=== PATIENT | male | born 1985 | race American Indian/Alaskan Native ===

== ENCOUNTER 2018-12-16 20:11 | Emergency (ER) | payer SELFPAY ==
[2018-12-16] MEDS ORDERED: XYLOCAINE 1% MPF 5 mL INFILTRATI ONE (23:21)
[2018-12-16] MEDS ORDERED: CLEOCIN 900 MG/50 mL 900 MG/50 ML BAG IV ONE (23:21)
[2018-12-16] MEDS ORDERED: NORCO 5/325 PO ONE (23:21)
--- NOTE | 2018-12-17 00:30 | Emergency Department Report ---
Abscess Boil HPI - HPI Chief Complaint: Skin/Abscess/Foreign Body Stated Complaint: CYST/BOIL UNDER RIGHT ARM Time Seen by Provider: 12/16/18 23:20 Location: Upper Extremity Severity: Moderate History: Yes Pain, No Fever, No Purulent Drainage, No Numbness, No Foreign Body, No Previous History, No Insect Bite HPI: patient is a 33-year-old -[place] male who presents for a right axillary abscess to 3 cm 2 days patient is HIV positive states that her wrist antivirals there is no fevers no chills no nausea vomiting history of recurrent abscesses patient has ID requesting I&D tonight Home Medications: Previous Rx's Medication Instructions Recorded Last Taken Type Clindamycin [Clindamycin CAP] 300 mg PO Q6H 10 Days #40 capsule 12/17/18 Unknown Rx traMADol [Ultram] 50 mg PO Q6HR PRN #12 tablet 12/17/18 Unknown Rx Allergies/Adverse Reactions: Allergies Allergy/AdvReac Type Severity Reaction Status Date / Time No Known Allergies Allergy Unverified 12/16/18 20:21 ED Review of Systems ROS: Stated complaint: CYST/BOIL UNDER RIGHT ARM Other details as noted in HPI Constitutional: denies: chills, fever Eyes: denies: eye pain, eye discharge, vision change ENT: denies: ear pain, throat pain Respiratory: denies: cough, shortness of breath, wheezing Cardiovascular: denies: chest pain, palpitations Endocrine: no symptoms reported Gastrointestinal: denies: abdominal pain, nausea, diarrhea Genitourinary: denies: urgency, dysuria Musculoskeletal: denies: back pain, joint swelling, arthralgia Skin: as per HPI, other (abscess right axillary ) Neurological: denies: headache, weakness, paresthesias Psychiatric: denies: anxiety, depression Hematological/Lymphatic: denies: easy bleeding, easy bruising ED Past Medical Hx - Past Medical History Previous Medical History?: No - Surgical History Past Surgical History?: No - Social History Smoking Status: Current Every Day Smoker Substance Use Type: None - Medications Home Medications: Home Medications Medication Instructions Recorded Confirmed Last Taken Type Clindamycin [Clindamycin CAP] 300 mg PO Q6H 10 Days #40 capsule 12/17/18 Unknown Rx traMADol [Ultram] 50 mg PO Q6HR PRN #12 tablet 06/15/19 Unknown Rx ED Abscess Boil Physical Exam - Exam General: Vital signs noted. No distress. Alert and acting appropriately. Size: 2 cm Exam: Yes Tenderness, Yes Fluctuance, Yes Surrounding Cellulites/Erythema, Yes Normal Neurologic Exam, Yes Normal Circulation, No Lymphangitis, No Crepitation, No Heart Murmur Exam: right axillary abscess 2x3 cm with mild erythema no fever, fluctuant no drainage I & D Note - I & D Note I & D Note: Right axillary abscesses to 3 cm include but are translucent anesthesia with 1% lidocaine 3 mL incision with 11 blade scalpel 1 lactulations broken up with blunt disedction with 6 inch forceps , moderate purulent output , irrigated with 30 cc sterile saline, pt given wound care instructions , sterile dressing applied , all bleeding is controlled pt for dc to home via family member and pov ED Course Vital Signs 12/16/18 20:43 Temperature 100.9 F H Pulse Rate 106 H Respiratory 18 Rate Blood Pressure 123/80 O2 Sat by Pulse 100 Oximetry Critical care attestation.: If time is entered above; I have spent that time in minutes in the direct care of this critically ill patient, excluding procedure time. ED Medical Decision Making - Medical Decision Making right axillary abscess for incision and drainage, see procedure note , all bleeding is controlled, sterile dressing applied pt given wound care instructions verbalized agreement and understanding of same. pt for dc to home in stable condition at this time. ED Disposition Clinical Impression: Abscess Disposition: DC-01 TO HOME OR SELFCARE Is pt being admited?: No Does the pt Need Aspirin: No Condition: Stable Instructions: Abscess (ED) Prescriptions: Clindamycin [Clindamycin CAP] 300 mg PO Q6H 10 Days #40 capsule traMADol [Ultram] 50 mg PO Q6HR PRN #12 tablet PRN Reason: Pain Referrals: MARBIN PLUNKETT MD [Staff Physician] - 3-5 Days Forms: Work/School Release Form(ED) Time of Disposition: 01:58
[2018-12-17] MEDS ORDERED: NORCO 5/325 ONE (01:41)
[2018-12-17 02:12] VITALS: BP 116/65
== END 2018-12-17 02:11 | disposition home or self-care (01) ==
LOC: ED 20:11
DX: L02.411 Cutaneous abscess of right axilla (principal); F17.200 Nicotine dependence, unspecified, uncomplicated
CPT/HCPCS: 96365; 99283